=== PATIENT | female | born 1960 | race Caucasian/White ===

== ENCOUNTER 2016-08-31 13:09 | Outpatient (CLI) | payer MEDICARE ==
[2014-10-21 09:45] VITALS: BP 139/94
[2016-08-31 13:49] LABS: eGFR (African) > 60; eGFR (Non-African) > 60
[2016-08-31 21:31] LABS: T3-UPTAKE 29.5 % (25.4-41.2)
== END 2016-08-31 13:10 ==
LOC: LAB 13:09
PROVIDERS: ATTEND Physician Assistant
DX: R25.2 Cramp and spasm (principal); R79.89 Other specified abnormal findings of blood chemistry
CPT/HCPCS: 36415; 80053; 83735; 84436; 84443; 84479

== ENCOUNTER 2017-03-14 08:34 | Outpatient (CLI) | payer MEDICARE ==
[2014-10-21 09:45] VITALS: BP 139/94
[2017-03-14 09:09] LABS: BASOPHILS % 0.9 (0.0-1.5); EOSINOPHILS % 5.2 % (0.0-6.8); MEAN CORPUSCULAR HEMOGLOBIN 28.9 pg (28.0-34.0); MEAN CORPUSCULAR VOLUME 86.6 fl (80.0-100.0); MONOCYTES % 7.1 % (0.0-11.0); NEUTROPHILS # 3.4 # k/uL (1.4-7.7)
== END 2017-03-14 08:35 ==
LOC: LAB 08:34
PROVIDERS: ATTEND Physician Assistant
DX: Z00.00 Encounter for general adult medical examination without abnormal findings (principal); E78.5 Hyperlipidemia, unspecified; E03.9 Hypothyroidism, unspecified
CPT/HCPCS: 36415; 80061; 84443; 85025

== ENCOUNTER 2018-05-18 09:22 | Outpatient (CLI) | payer MEDICARE ==
[2014-10-21 09:45] VITALS: BP 139/94
[2018-05-18 09:41] LABS: MEAN CORPUSCULAR HEMOGLOBIN 29.3 pg (28.0-34.0)
[2018-05-18 10:21] LABS: eGFR (Non-African) > 60
== END 2018-05-18 09:23 ==
LOC: LAB 09:22
PROVIDERS: ATTEND Family Medicine
DX: E78.2 Mixed hyperlipidemia (principal); E03.9 Hypothyroidism, unspecified; R53.82 Chronic fatigue, unspecified; Z01.419 Encounter for gynecological examination (general) (routine) without abnormal findings
CPT/HCPCS: 36415; 80053; 80061; 84443; 85027; G0143; 88148

== ENCOUNTER 2018-05-18 14:33 | Outpatient (CLI) | payer MEDICARE ==
[2014-10-21 09:45] VITALS: BP 139/94
== END 2018-05-18 14:35 ==
LOC: LABRHC 14:33
PROVIDERS: ATTEND Family Medicine
DX: Z53.9 Procedure and treatment not carried out, unspecified reason (principal)